=== PATIENT | female | born 1950 | race Caucasian/White ===

== ENCOUNTER 2019-07-03 06:03 | Day surgery (SDC) | payer BC ==
--- NOTE | 2019-06-27 11:45 | RAD REPORT ---
EXAM DESCRIPTION: RAD - Chest Pa And Lat (2 Views) - 06/27/2019 10:35 am CLINICAL HISTORY: Preop chest, pending rotator cuff surgery COMPARISON: None. TECHNIQUE: PA and lateral views of the chest were obtained. FINDINGS: The lungs are clear of focal mass, infiltrate or failure finding. Interstitial markings ar e prominent believed to be a baseline fibrotic change. Trachea is midline. Heart size is normal and central vasculature is within normal limits. No pleural effusion or pneumothorax seen. No acute [place] finding noted. No aortic abnormality. IMPRESSION: Mild prominence of the interstitial pattern believed to be a baseline mild fibrosis. No acute cardiopulmonary finding.
[2019-06-27 11:53] LABS: Absolute Lymphocytes (CBC) 1.6 K/uL (0.7-4.9); Basophils % 1.1 % (0-1.3); Hematocrit 39.7 % (36.0-45.0); MPV 9.3 fL (7.6-11.3); RBC Red Blood Cell Count 4.43 M/uL (3.86-4.86)
[2019-06-27 11:55] LABS: Protime INR 0.93
[2019-06-27 12:02] LABS: Potassium 4.1 mmol/L (3.5-5.1)
--- OUTSIDE RECORDS SUMMARY | 2019-07-03 06:06 | XMS REPORT | Summary of Care ---
:1950 Author Organization [facility] Address [address] [place] [address]- Encounter HQ [place](FIN) [id number] Date(s): 08/02/18 - 08/02/18 [facility] [address] [place] [phone] Encounter Diagnosis Spondylosis without myelopathy or radiculopathy, lumbar region (Final) - 08/08/18 Spondylosis without myelopathy or radiculopathy, lumbosacral region (Final) - Sacroiliitis, not elsewhere classified (Final) - Sacrococcygeal disorders, not elsewhere classified (Final) - Postlaminectomy syndrome, not elsewhere classified (Final) - Hyperlipidemia, unspecified (Final) - Gastro-esophageal reflux disease without esophagitis (Final) - Prediabetes (Final) - 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) - Discharge Disposition: Home or Self Care Attending Physician: Varghese Mcnulty MD Referring Physician: Varghese Mcnulty MD Vital Signs Most recent to oldest 1 2 3 [Reference Range]: Height 161.29 cm (08/01/18 9:44 AM) Temperature Oral [96.4-99.1 97.9 DegF DegF] (08/02/18 6:21 AM) Blood Pressure [90-140/60-90 119/76 mmHg 117/77 mmHg 119/66 mmHg mmHg] (08/02/18 11:58 AM) (08/02/18 11:43 AM) (08/02/18 11:28 AM) Respiratory Rate [14-20 BRMIN] 16 BRMIN 16 BRMIN 16 BRMIN (08/02/18 11:58 AM) (08/02/18 11:43 AM) (08/02/18 11:28 AM) Peripheral Pulse Rate [60-100 83 bpm 87 bpm 80 bpm bpm] (08/02/18 11:58 AM) (08/02/18 11:43 AM) (08/02/18 11:28 AM) Weight 83.636 kg (08/02/18 6:16 AM) Body Mass Index 32.15 m2 (08/02/18 6:16 AM) Problem List Condition Effective Dates Status Health Status Informant High cholesterol(Confirmed) Active Osteopenia(Confirmed)1 Active Palpitations(Confirmed) Active Pre-diabetes(Confirmed) Resolved SVT (supraventricular 2008 Resolved tachycardia)(Confirmed)2 1right saz2whgwdohg times 2 Allergies, Adverse Reactions, Alerts Substance Reaction Severity Status sulfa drugs1 Active NKFA Active HYDROcodone2 Active diazePAM3 Active [id number] Medications Ancef 2 gm, Route: IVPB, ONCE, Dosing Weight 83.636, kg, Start date: 08/02/18 7:15:00 CDT, Stop date: 08/02/18 7:15:00 CDT, Surgical Prophylaxis Only; For patients & lt; 120 kg, ABX Indication: Surgical Prophylaxis Start Date: 08/02/18 Stop Date: 08/02/18 Status: Completedaspirin 81 mg tablet, enteric coated 81 mg=1 tab, PO, Daily, # 90 tab, 3 Refill(s) Start Date: 08/01/18 Status: Orderedcalcium carbonate 600 mg oral tablet 1,200 mg=2 tab, PO, Daily, # 180 tab, 0 Refill(s) Start Date: 08/01/18 Status: OrderedCo-Q10 200 mg oral capsule PO, Daily, 0 Refill(s) Start Date: 08/01/18 Status: OrderedFish Oil PO, 0 Refill(s) Start Date: 08/01/18 Status: OrderedLactated Ringers IV 1,000 mL 1,000 mL, Rate: 40 ml/hr, Infuse over: 25 hr, Route: IV, Dosing Weight 83.636 kg , Total Volume: 1,000, Start date: 08/02/18 7:16:00 CDT, Duration: 30 day, Stop date: 09/01/18 7:15:00 CDT, 1.96, m2 Start Date: 08/02/18 Stop Date: 08/03/18 Status: DiscontinuedLipitor 40 mg oral tablet 40 mg=1 tab, PO, Bedtime, # 30 tab, 0 Refill(s) Start Date: 08/01/18 Status: Orderedmelatonin Bedtime, 0 Refill(s) Start Date: 08/01/18 Status: OrderedProtonix 40 mg oral enteric coated tablet 40 mg=1 tab, PO, BID, # 30 tab, 0 Refill(s) Start Date: 08/01/18 Status: OrderedVitamin B-12 1000 mcg sublingual tablet 1,000 microgram=1 tab, SL, Daily, 0 Refill(s) Start Date: 08/01/18 Status: OrderedVitamin D3 5000 intl units oral capsule 5,000 IntlUnit=1 cap, PO, BID, # 30 cap, 1 Refill(s) Start Date: 08/01/18 Status: Ordered Results No data available for this section Immunizations No data available for this section Procedures Procedure Date Related Diagnosis Body Site Status Epidural steroid injection 2016 Completed Ablation1 2007 Completed Lumbar spinal fusion2 2007 Completed Abdominal hysterectomy Completed Bunionectomy3 Completed 1cardio [id number] feet Social History Social History Type Response Exercise Exercise duration: 60. Exercise frequency: 3-4 times/week. Exercise type: Walking. Alcohol Never Smoking Status Never smoker; Exposure to Tobacco Smoke None; Cigarette Smoking Last 365 Days No; Reg Smoking Cessation Counseling No entered on: 08/02/18 Assessment and Plan No data available for this section
--- OUTSIDE RECORDS SUMMARY | 2019-07-03 06:06 | XMS REPORT ---
:1950 Author Organization [employer] Care Team Providers Name Role Phone Uzair Bean Provider Role Unavailable Allergies, Adverse Reactions, Alerts Substance Reaction Event Type Hydrocodone-Acetaminophen Info Not Available Drug Allergy Diazepam Info Not Available Drug Allergy Problems Problem Type Condition Code Onset Dates Condition Status Assessment Pain in joint of right shoulder M25.511 Active Assessment Nontraumatic complete tear of right M75.121 Active rotator cuff Assessment Bicipital tendinitis of right M75.21 Active shoulder Assessment Impingement syndrome of right M75.41 Active shoulder Medications Medication Code System Code Instructions Start End Date Status Dosage Date Raloxifene HCl [facility] 59084-960 Active not defined 0-01 Pantoprazole [facility] 82308-286 Active not defined Sodium 4-01 Aspir-81 ND 0 Active not defined Vimovo [facility] 62359-439 Active not defined 0-04 Atorvastatin [facility] 55704-548 Active not defined Calcium 7-98 Results No Known Results Summary Purpose eClinicalWorks Submission
--- OUTSIDE RECORDS SUMMARY | 2019-07-03 06:06 | XMS REPORT ---
:1950 Author Organization [employer] Care Team Providers Name Role Phone Uzair Bean Provider Role Unavailable Allergies No Known Allergies Problems No Known Problems Medications No Known Medications Results No Known Results Summary Purpose eClinicalWorks Submission
--- OUTSIDE RECORDS SUMMARY | 2019-07-03 06:06 | XMS REPORT | Continuity of Care Document ---
:1950 Author Organization [facility] Care Team Providers Name Role Phone [facility] Unavailable Unavailable Problems Problem Status Onset Classification Date Comments Source Date Reported Spondylosis 08/09/20 02/19/2019 [facility] without myelopathy 18 and Spine or radiculopathy, lumbar region SACROILIITIS AND Active 07/25/20 [facility] COCCYDYNIA 18 [place] SVT (Confirmed)2 Resolved 11/27/19 Problem 02/19/2019 ablation Ortho 08 times 2 and Spine Spondylosis 02/19/2019 [facility] without myelopathy and Spine or radiculopathy, lumbosacral region Sacroiliitis, not 02/19/2019 [facility] elsewhere and Spine classified Sacrococcygeal 02/19/2019 [facility] disorders, not and Spine elsewhere classified Postlaminectomy 02/19/2019 [facility] syndrome, not and Spine elsewhere classified Hyperlipidemia, 02/19/2019 [facility] unspecified and Spine Gastro-esophageal 02/19/2019 [facility] reflux disease and Spine without esophagitis Prediabetes 02/19/2019 [facility] use of 02/19/2019 [facility] aspirin and Spine High cholesterol Active Problem 02/19/2019 [facility] Osteopenia1 Active Problem 02/19/2019 right hip [facility] Palpitations Active Problem 02/19/2019 [facility] Pre-diabetes Resolved Problem 02/19/2019 [facility] Medications Medication Details Route Status Patient Ordering Order Source Instructions Provider Date Lactated 1,000 mL, No Longer Ortho Ringers IV Rate: 40 Active 018 and 1,000 mL ml/hr, Infuse Spine over: 25 hr, Route: IV, Dosing Weight 83.636 kg, Total Volume: 1,000, Start date: 08/02/18 7:16:00 CDT, Duration: 30 day, Stop date: 09/01/18 7:15:00 CDT, 1.96, m2 Ancef 2 gm, Route: Inactive [facility] IVPB, ONCE, 018 and Dosing Weight Spine 83.636, kg, Start date: 08/02/18 7:15:00 CDT, Stop date: 08/02/18 7:15:00 CDT, Surgical Prophylaxis Only; For patients Fish Oil PO, 0 Active Ortho Refill(s) 018 and Spine Melatonin Bedtime, 0 Active Ortho Refill(s) 018 and Spine Aspirin 81 MG 81 mg=1 tab, Active [facility] Enteric Coated PO, Daily, # 018 and Tablet 90 tab, 3 Spine Refill(s) Vitamin B-12 1,000 Active Ortho 1000 mcg microgram=1 018 and sublingual tab, SL, Spine tablet Daily, 0 Refill(s) calcium 1,200 mg=2 Active Ortho carbonate 600 tab, PO, 018 and mg oral tablet Daily, # 180 Spine tab, 0 Refill(s) pantoprazole 40 40 mg=1 tab, Active Ortho MG Enteric PO, BID, # 30 018 and Coated Tablet tab, 0 Spine [Protonix] Refill(s) Co-Q10 200 mg PO, Daily, 0 Active Ortho oral capsule Refill(s) 018 and Spine atorvastatin 40 40 mg=1 tab, Active [facility] MG Oral Tablet PO, Bedtime, # 018 and [Lipitor] 30 tab, 0 Spine Refill(s) Vitamin D3 5000 5,000 Active Ortho intl units oral IntlUnit=1 018 and capsule cap, PO, BID, Spine # 30 cap, 1 Refill(s) Allergies, Adverse Reactions, Alerts Substance Category Reaction Severity Reaction Status Date Comments Source type Reported sulfa Assertion Drug Active rash [facility] drugs<sup>1 allergy Ortho </sup> and Spine NKFA Assertion Drug Active [facility] allergy [facility] and Spine HYDROcodone Assertion Propensity Active anxiety [facility] <sup>2</sup to adverse Ortho > reactions and to drug Spine diazePAM<zepeda Assertion Propensity Active anxiety [facility] p>3</sup> to adverse Ortho reactions and to drug Spine Immunizations No Data Provided for This Section Results No Data Provided for This Section Pathology Reports No Data Provided for This Section Diagnostic Reports No Data Provided for This Section Consultation Notes No Data Provided for This Section Discharge Summaries No Data Provided for This Section History and Physicals No Data Provided for This Section Vital Signs Vital Sign Value Date Comments Source Respitory Rate 16 08/02/2018 [facility] Systolic (mm Hg) 119 08/02/2018 [facility] Diastolic (mm Hg) 76 08/02/2018 [facility] Heart Rate 83 08/02/2018 [facility] Systolic (mm Hg) 117 08/02/2018 [facility] Diastolic (mm Hg) 77 08/02/2018 [facility] Respitory Rate 16 08/02/2018 [facility] Heart Rate 87 08/02/2018 [facility] Heart Rate 80 08/02/2018 [facility] Respitory Rate 16 08/02/2018 [facility] Systolic (mm Hg) 119 08/02/2018 [facility] and Spine Diastolic (mm Hg) 66 08/02/2018 [facility] Temperature Oral (F) 97.9 F 08/02/2018 [facility] Weight 83.636 08/02/2018 [facility] BMI Calculated 32.15 08/02/2018 [facility] Height 161.29 cm 08/01/2018 [facility] Encounters Location Location Encounter Encounter Reason Attending ADM DC Status Source Details Type Number For Provider Date Date Visit [id number] Varghese 08/02 08/03 [facility] Procedures Procedure Code Date Perfomer Comments Source Epidural steroid [id number] 11/27/2016 Ortho and injection Spine Ablation<sup>1</sup [id number] 11/27/2007 cardio ablation Ortho and > Spine Lumbar spinal [id number] 11/27/2007 l3-l5 Ortho and fusion<sup>2</sup> Spine Abdominal [id number] Ortho and hysterectomy Spine Bunionectomy<sup>3< [id number] bilateral feet Ortho and /sup> Spine Assessment and Plan No Data Provided for This Section Plan of Care No Data Provided for This Section Social History Social History Date Source Social History TypeResponse 08/01/2018 [facility] Exercise Exercise duration: 60. Exercise frequency: 3-4 times/week. Exercise type: Walking. Alcohol Never Smoking Status Never smoker; Exposure to Tobacco Smoke None; Cigarette Smoking Last 365 Days No; Reg Smoking Cessation Counseling No entered on: 08/02/18 Family History No Data Provided for This Section Advance Directives No Data Provided for This Section Functional Status No Data Provided for This Section
--- OUTSIDE RECORDS SUMMARY | 2019-07-03 06:06 | XMS REPORT ---
:1950 Author Organization eClinicalWorks Care Team Providers Name Role Uzair Paul Provider Role Unavailable Allergies, Adverse Reactions, Alerts [...] syndrome of right M75.41 Active shoulder Medications No Known Medications Results No Known Results Summary Purpose eClinicalWorks Submission
[2019-07-03] MEDS ORDERED: CEFAZOLIN/SWI 1gm 1 GM/10 ML SYR ONE (06:12)
[2019-07-03] MEDS ORDERED: Ringers Lactate 1,000 ML IV ONE ×2 (06:12→08:38)
[2019-07-03] MEDS ORDERED: EPINEPHRINE/PF 1 MG/ML AMP ONE (06:53)
[2019-07-03] MEDS ORDERED: FENTANYL CITR 100 MCG/2 ML ONE (07:00)
[2019-07-03] MEDS ORDERED: ROPLVACAINE HCL 20 ML ONE (07:00)
[2019-07-03] MEDS ORDERED: MIDAZOLAM HCL 2 MG/2 ML INJ ONE (07:00)
[2019-07-03] MEDS ORDERED: dexAMETHasone 10 MG/ML VIAL ONE ×2 (07:00→08:31)
[2019-07-03] MEDS ORDERED: LIDOCAINE 2% MPF 5 ML VIAL ONE ×2 (07:00→07:35)
[2019-07-03] MEDS ORDERED: ROCURONIUM 50 MG/5 ML VIAL IV ONE (07:35)
[2019-07-03] MEDS ORDERED: PROPOFOL 200 MG/20 ML VIAL IV ONE (07:35)
[2019-07-03] MEDS ORDERED: NS 0.9% VIAL 10 ML ONE ×2 (08:00→08:51)
[2019-07-03] MEDS ORDERED: Phenylephrine HCl 10 MG/ML 1 ML VIAL ONE (08:00)
[2019-07-03] MEDS ORDERED: ONDANSETRON 4 MG/2 ML VIAL ONE (08:32)
[2019-07-03] MEDS ORDERED: GLYCOPYRROLATE 0.2 MG/ML SYR ONE (09:06)
[2019-07-03] MEDS ORDERED: NEOSTIGMINE 1 MG/ML -10 ML VIAL ONE (09:06)
[2019-07-03] MEDS ORDERED: EPHEDRINE SULF 50 MG/ML VIAL ONE (09:17)
[2019-07-03] MEDS ORDERED: KETOROLAC 30 MG/ML INJ ONE (09:25)
--- NOTE | 2019-07-03 09:57 | P.BOP ---
Preoperative diagnosis: right shoulder rotator cuff tear, bicipital tenosynovitis, impingement Postoperative diagnosis: same, right shoulder SLAP tear Primary procedure: right shoulder arthroscopic rotator cuff tear, SLAP debridement Secondary procedure: right shoulder open subpectoral bicep tenodesis Other procedure(s): right shoulder subacromial decompression Estimated blood loss: 10 cc Specimen: none Findings: see dictation Anesthesia: General Complications: None Implants: 4.75 mm Swivelock, 7 mm biotenodesis screw Fluids & blood products: per anesthesia record Transferred to: Recovery Room Condition: Good
[2019-07-03] MEDS ORDERED: PROMETHAZINE 25 MG/ML VIAL ONE (10:18)
[2019-07-03] MEDS ORDERED: MEPERIDINE HCL 25 MG/0.5 ML ONE (10:24)
--- NOTE | 2019-07-03 10:45 | RAD REPORT ---
EXAM DESCRIPTION: RAD - Shoulder 1 View - 07/03/2019 10:25 am CLINICAL HISTORY: Right shoulder surgery FINDINGS: Frontal view of the right shoulder was obtained. No fracture or dislocation is seen. No si gnificant bone or joint abnormality displayed Medial right lung base is hazy perhaps secondary to a combination of atelectasis in crowding of the p ulmonary vessels
[2019-07-03] MEDS ORDERED: HYDROCODONE/APAP 7.5/325 MG TAB ONE (11:21)
[2019-07-03] MEDS ORDERED: DIPHENHYDRAMINE 50 MG/ML VIAL ONE (11:21)
--- NOTE | 2019-07-04 07:50 | OP ---
Date of Procedure: 07/03/2019 Surgeon: Uzair Bean MD Preoperative Diagnoses: 1. Right shoulder rotator cuff tear. 2. Right shoulder bicipital tenosynovitis. 3. Right shoulder impingement syndrome. Postoperative Diagnoses: 1. Right shoulder rotator cuff tear. 2. Right shoulder bicipital tenosynovitis. 3. Right shoulder impingement syndrome. 4. Right shoulder SLAP tear. 5. 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 Procedure Performed: 1. Right shoulder arthroscopic rotator cuff repair. 2. Right shoulder arthroscopic SLAP tear debridement. 3. Chondroplasty of the humeral head. 4. Right shoulder arthroscopic subacromial decompression. 5. Right shoulder open subpectoral biceps tenodesis. Anesthesia: General endotracheal. Fluids: Per Anesthesia record. Estimated Blood Loss: 10 cc. Complications: None. Implant: 1. One 4.75 mm Arthrex SwiveLock. 2. A 7 x 19 mm Arthrex Bio-Tenodesis screw. Indication Of Procedure: Olga is a 69-year-old female who presented to my clinic and MRI findings consistent with right shoulder rotator cuff tear, bicipital tenosynovitis . She failed conservative treatment measures discussed with the patient at length risks and benefits associated with operative and nonoperative treatment. She expressed understanding and elected to proceed with operative treatment. Description Of Procedure: After informed consent was obtained, the patient was identified in the preoperative holding area. The right upper extremity was marked. The patient was then brought back to the PACU and underwent a right- sided interscalene block performed by Anesthesia. She was then brought back to the operating room, transferred to the operating table in a supine fashion and placed under general endotracheal anesthesia. She was then placed in the beach chair position with her extremities well padded. The right upper extremity was then evaluated. Patient had of her right shoulder. Right upper extremity was then prepped and draped in usual sterile fashion. A time-out was initiated. Correct patient and procedure were confirmed and identified. The patient had received her preoperative prophylactic antibiotics. First, via the posterior portal position, a spinal needle was introduced in the glenohumeral the joint and the joint was then injected with 30 cc of normal saline to distend the capsule. A stab incision was placed posteriorly into the posterior portal position and arthroscope was brought into posterior portal position and anterior portal was created just lateral to the coracoid process under direct visualization diagnostic arthroscopy was performed. shoulder joint, the patient was noted to have significant fraying of the superior labrum noted to be stable. There was also some fraying and tearing of the biceps tendon anchor. was then performed using arthroscopic meniscal biter arthroscopic shaver. It appeared that there were some grade 3 chondromalacia changes with loose chondral flaps centered over the humeral head . Chondroplasty was then performed using arthroscopic shaver to remove any loose chondral flaps of the humeral head. There were grade 2 chondromalacia changes over a small area of the glenoid surface anterior and posterior labrums were found to be stable to probe. There were no loose bodies found within the axillary pouch. Along the anterior supraspinatus tendon, there was significant amount of undersurface tearing just posterior to the biceps tendon. Subscapularis was found to be intact and stable to probe. Using arthroscopic shaver, the __ supraspinatus was then debrided of any devitalized or damaged tissue. A spinal needle was then introduced in the lateral aspect of the shoulder __ lateral portal. Spinal needle was introduced and it was noted that there was arthroscopic shaver lateral portal into intra- articular space. This was debrided using an arthroscopic shaver. The greater tuberosity debrided arthroscope was brought into the subacromial space. The subacromial bursectomy was performed using the arthroscopic shaver from the lateral portion. Undersurface of the acromion was then debrided using our radiofrequency ablator. Rotator cuff tear was identified proceed with the configuration. A was placed within the lateral portal and using a Screenie FastPass suture passer , the SutureTape was then placed in an inverted horizontal mattress fashion ____ anteriorly followed by of the suture and attention was placed lateral portal sutures. There was good reduction of the rotator cuff around the greater tuberosity. A 4.75 mm Arthrex SwiveLock was then used to create an anchor greater tuberosity. The SwiveLock was placed with overall good reduction of the rotator cuff tear and the greater tuberosity. Remaining sutures were then cut. Next, attention was taken to perform subacromial decompression. The arthroscopic shaver _ undersurface of the acromion. The acromioplasty was performed using an arthroscopic parth subacromial spurring over the anterior lateral aspect of the acromion. After this was completed, arthroscopic instruments were removed. Next, attention was taken to performing biceps tenodesis. Approximately, a 5 cm incision was made in line with insertion of the pec major tendon just medial towards the insertion. Dissection was then taken down to the fascia, which was split longitudinally. A Hohmann retractor was then placed underneath the pec major tendon and the biceps tendon was identified and it was marked 3 cm distal to the musculotendinous junction and a FiberLoop was then used to whipstitch the biceps tendon. Remaining tendon was then cut. It was measured and it was elected to proceed with a size 7 mm Bio- Tenodesis screw. A guide pin was placed in bicortical fashion within the bicipital groove followed by 7.5 mm reamer, which was placed uni-cortically and to create a bone tunnel, biceps tendon was then passed through the screw and the screw and tendon were placed within the bone tunnel and there was a good overall fit. Remaining suture were cut after they were tied over the biceps tendon and the screw. The wounds were then irrigated thoroughly with normal saline. Subcutaneous tissue was approximated using a 2- 0 Vicryl portals were approximated using a 3-0 Monocryl. Sterile dressings were applied. Patient was placed in a shoulder immobilizer, awakened , and transferred to the PACU in stable condition. Postoperative Plan: She will be nonweightbearing of her right upper extremity. She will remain in the shoulder immobilizer. She will follow up in clinic next week for wound check and dressing change. She will begin physical therapy at 3 weeks postop following the medium rotator cuff repair protocol. RAMÓN/NISREEN Voice ID: [id number] Report ID: [id number] MTDD
== END 2019-07-03 12:45 | disposition home or self-care (01) ==
LOC: OR 06:03
PROVIDERS: ATTEND Orthopaedic Surgery Sports Medicine
PROC: 0RNJ4ZZ Release Right Shoulder Joint, Percutaneous Endoscopic Approach (ICD-10-PCS; 2019-07-03)
PROC: 0RBJ4ZZ Excision of Right Shoulder Joint, Percutaneous Endoscopic Approach (ICD-10-PCS; 2019-07-03)
PROC: 0LS10ZZ Reposition Right Shoulder Tendon, Open Approach (ICD-10-PCS; 2019-07-03)
PROC: 0LQ14ZZ Repair Right Shoulder Tendon, Percutaneous Endoscopic Approach (ICD-10-PCS; principal; 2019-07-03 07:30)
DX: M75.121 Complete rotator cuff tear or rupture of right shoulder, not specified as traumatic (principal); S43.431A Superior glenoid labrum lesion of right shoulder, initial encounter; M75.21 Bicipital tendinitis, right shoulder; M75.41 Impingement syndrome of right shoulder; M94.211 Chondromalacia, right shoulder; K21.9 Gastro-esophageal reflux disease without esophagitis; E78.00 Pure hypercholesterolemia, unspecified; Z88.2 Allergy status to sulfonamides; Z88.6 Allergy status to analgesic agent; Z79.82 Long term (current) use of aspirin; Z82.49 Family history of ischemic heart disease and other diseases of the circulatory system
CPT/HCPCS: 85025; 80048; 36415; 85610; 85730; 71046; 73020; 29827; 29826; 29822; 23430; J2704; J2710; J0171; J2550; J2370; J2250; J3010; J1100 ×2; J2175; J2795; J0690; J2405